=== PATIENT | female | born 2000 | race Caucasian/White ===

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

== ENCOUNTER 2021-02-09 21:48 | Emergency (ER) | payer SELFPAY ==
--- NOTE | 2021-02-09 22:29 | EDM.PDOC ---
ED HPI GENERAL MEDICAL PROBLEM - General Chief Complaint: ENT Problem Stated Complaint: VOMITING/FEVER/SPRE THROAT Time Seen by Provider: 02/09/21 22:02 Source of Information: Reports: Patient, RN Notes Reviewed - History of Present Illness INITIAL COMMENTS - FREE TEXT/NARRATIVE: 20 yr old female comes in with throat pain. This started about 4 to 5 days ago, more severe the last 2 days. Painful to swallow, chills, possible low grade fever. Has been vacinated for covid. Not coughing or short of breath. Throat Pain Score (Numeric/FACES): 10 - Related Data Allergies Allergy/AdvReac Type Severity Reaction Status Date / Time No Known Allergies Allergy Verified 02/09/21 22:03 Home Meds: Home Meds Hydrocodone/Acetaminophen [HYDROcodone-Acetaminophen 5-325 MG] 1 each PO Q6HR PRN #8 tab 02/09/21 [Rx] Penicillin V Potassium [Veetids] 500 mg PO Q6H #30 tab 02/09/21 [Rx] Past Medical History - Past Health History Medical/Surgical History: Denies Medical/Surgical History Neurological History: Reports: Other (See Below) Other Neuro History: being worked up by neurologist in [place] for [place]IC[place]; occasional headaches - Infectious Disease History Infectious Disease History: Reports: None Social & Family History - Tobacco Use Tobacco Use Status *Q: Never Tobacco User - Caffeine Use Caffeine Use: Reports: Energy Drinks ED ROS GENERAL - Review of Systems Review Of Systems: See Below Constitutional: Reports: Fever, Chills HEENT: Reports: Throat Pain. Denies: Ear Pain, Rhinitis Respiratory: Denies: Shortness of Breath, Cough Cardiovascular: Denies: Chest Pain GI/Abdominal: Denies: Abdominal Pain, Diarrhea, Nausea, Vomiting Musculoskeletal: Reports: No Symptoms Skin: Reports: No Symptoms Neurological: Reports: No Symptoms ED EXAM, GENERAL - Physical Exam Exam: See Below General Appearance: Alert, No Apparent Distress Nose: Normal Inspection Throat/Mouth: Inflammation (no visible exudate) Neck: No: Lymphadenopathy (L), Lymphadenopathy (R) Respiratory/Chest: No Respiratory Distress, Lungs Clear, Normal Breath Sounds. No: Rhonchi Cardiovascular: Tachycardia Extremities: Normal Inspection Neurological: Alert, Oriented, No Motor/Sensory Deficits Skin Exam: Warm, Dry, Normal Color, No Rash Course - Vital Signs Last Recorded V/S: Last Vital Signs Temp 98.8 F 12/10/21 22:00 Pulse 115 H 02/09/21 22:00 Resp 18 02/09/21 22:00 BP 138/95 H 02/09/21 22:00 Pulse Ox 97 02/09/21 22:00 - Orders/Labs/Meds Orders: Active Orders 24 hr Category Date Time Status Peripheral IV Care [RC] . DIRECTED Care 02/09/21 23:10 Active Sodium Chloride 0.9% [Normal Saline] 1,000 ml Med 02/09/21 23:15 Active IV ONETIME Sodium Chloride 0.9% [Saline Flush] Med 02/09/21 23:10 Active 10 ml FLUSH ASDIRECTED PRN Peripheral IV Insertion Adult [OM.PC] Stat Oth 02/09/21 23:09 Ordered Medication Orders Sodium Chloride (Normal Saline) 1,000 mls @ 999 mls/hr IV ONETIME RUI Last Admin: 02/09/21 23:17 Dose: 999 mls/hr Documented by: KELIN Sodium Chloride (Sodium Chloride 0.9% 10 Ml Syringe) 10 ml FLUSH ASDIRECTED PRN PRN Reason: Keep Vein Open Last Admin: 02/09/21 23:17 Dose: 10 ml Documented by: KELIN Labs: Laboratory Tests 02/09/21 02/09/21 Range/Units 22:00 22:17 SARS-CoV-2 RNA ([facility]) Negative (NEGATIVE) Group A Strep (PCR) Detected H (NOT DETECT) Meds: Medications Generic Name Dose Route Start Last Admin Trade Name Freq PRN Reason Stop Dose Admin Sodium Chloride 1,000 mls @ 999 mls/hr 02/09/21 23:15 02/09/21 23:17 Normal Saline IV 999 mls/hr ONETIME RUI Administration Sodium Chloride 10 ml 02/09/21 23:10 02/09/21 23:17 Sodium Chloride 0.9% 10 Ml Syringe FLUSH 10 ml ASDIRECTED PRN Administration Keep Vein Open Discontinued Medications Generic Name Dose Route Start Last Admin Trade Name Freq PRN Reason Stop Dose Admin Hydrocodone Bitart/Acetaminophen 1 tab 02/09/21 23:10 02/09/21 23:17 Acetaminophen/Hydrocodone 325-5 Mg Tab PO 02/09/21 23:11 1 tab ONETIME ONE Administration Penicillin V Potassium 500 mg 02/09/21 23:10 02/09/21 23:17 Penicillin V Potassium 500 Mg Tab PO 02/09/21 23:11 500 mg ONETIME ONE Administration - Re-Assessments/Exams Free Text/Narrative Re-Assessment/Exam: 02/09/21 23:16 Rapid strep is pos. she is requesting IV fluid, has not been drinking well the last few days, will give 1 hydrocodone for pain, that will also help, discharge instr. as documented. Departure - Departure Time of Disposition: 23:16 Disposition: Home, Self-Care 01 Condition: Fair Clinical Impression: Strep throat - Discharge Information Prescriptions: Hydrocodone/Acetaminophen [HYDROcodone-Acetaminophen 5-325 MG] 1 each PO Q6HR PRN #8 tab PRN Reason: Pain Penicillin V Potassium [Veetids] 500 mg PO Q6H #30 tab Instructions: Sore Throat, [id number] Referrals: Marley Quiroga PA-C [Primary Care Provider] - Forms: ED Department Discharge Additional Instructions: PenVK 500 mg 4 times daily for 1 week or until gone. Tylenol for mild to moderate discomfort or hydrocodone if needed for severe pain. Prescriptions have been sent to [facility] on [address]. They can be picked up in the morning. Follow up clinic as needed. Return to ED as needed. Sepsis Event Note (ED) - Focused Exam Vital Signs: Vital Signs Temp Pulse Resp BP Pulse Ox 02/09/21 22:00 98.8 F 115 H 18 138/95 H 97 - My Orders Last 24 Hours: My Active Orders 02/09/21 23:09 Peripheral IV Insertion Adult [OM.PC] Stat 02/09/21 23:10 Peripheral IV Care [RC] . DIRECTED Sodium Chloride 0.9% [Saline Flush] 10 ml FLUSH ASDIRECTED PRN 02/09/21 23:15 Sodium Chloride 0.9% [Normal Saline] 1,000 ml IV ONETIME - Assessment/Plan Last 24 Hours: My Active Orders 02/09/21 23:09 Peripheral IV Insertion Adult [OM.PC] Stat 02/09/21 23:10 Peripheral IV Care [RC] . DIRECTED Sodium Chloride 0.9% [Saline Flush] 10 ml FLUSH ASDIRECTED PRN 02/09/21 23:15 Sodium Chloride 0.9% [Normal Saline] 1,000 ml IV ONETIME
[2021-02-09] MEDS ORDERED: Penicillin V Potassium 500 MG Tab PO ONE (23:10)
[2021-02-09] MEDS ORDERED: Acetaminophen/HYDROcodone 325-5 MG Tab PO ONE (23:10)
[2021-02-09] MEDS ORDERED: Sodium Chloride 0.9% 10 ML Syringe FLUSH PRN (23:10)
[2021-02-09] MEDS ORDERED: Sodium Chloride 0.9% 1,000 ML IV SCH (23:15)
== END 2021-02-10 00:54 | disposition home or self-care (01) ==
LOC: JD.ED 21:48
DX: J02.0 Streptococcal pharyngitis (principal); Z20.822 Contact with and (suspected) exposure to COVID-19
CPT/HCPCS: 87635; 87651; 99283; A9270; J7030; U0002

== ENCOUNTER 2022-08-02 00:38 | Emergency (ER) | payer BC ==
[2022-08-02 01:15] LABS: BASOPHILS ABSOLUTE AUTO 0.13 K/mm3 (0.01-0.08); BASOPHILS PERCENT AUTO 1.1 % (0.1-1.2); EOSINOPHILS PERCENT AUTO 0.9 (0.7-5.8); HEMATOCRIT 43.2 % (34.1-44.9); HEMOGLOBIN 15.1 gm/dl (11.2-15.7); IMMATURE GRAN ABSOLUTE AUTO 0.06 K/mm3 (0.00-0.10); IMMATURE GRAN PERCENT AUTO 0.5 % (<=1.0); LYMPHOCYTES ABSOLUTE AUTO 5.06 K/mm3 (1.18-3.74); LYMPHOCYTES PERCENT AUTO 44.5 % (19.3-51.7); MEAN CORPUSCULAR HEMOGLOBIN 29.3 pg (25.6-32.2); MEAN CORPUSCULAR VOLUME 83.7 fl (79.4-94.8); MEAN PLATELET VOLUME 10.1 fl (9.4-12.3); MONOCYTES PERCENT AUTO 13.2 % (4.7-12.5); NEUTROPHILS ABSOLUTE AUTO 4.53 K/mm3 (1.56-6.13); NEUTROPHILS PERCENT AUTO 39.8 % (34.0-71.1); PLATELET COUNT,PLT 228 K/mm3 (182-369); RED BLOOD CELL COUNT 5.16 M/mm3 (3.98-5.22); WHITE BLOOD CELL COUNT,WBC 11.38 K/mm3 (3.98-10.04)
[2022-08-02 01:36] LABS: ALBUMIN 4.2 g/dl (3.4-5.0); ANION GAP 12.9 (5-15); BILIRUBIN TOTAL 0.8 mg/dL (0.2-1.0); BUN/CREATININE RATIO 14.5 (14-18); CALCIUM 9.7 mg/dL (8.5-10.1); CREATININE 1.1 mg/dL (0.55-1.02); EST CRCL DRUG DOSING (CG) 78.67 mL/min; POTASSIUM,K 3.9 mEq/L (3.5-5.1); PROTEIN TOTAL,TP 8.4 g/dl (6.4-8.2)
[2022-08-02 02:11] LABS: SLIDE REVIEW ABNORMAL SMEAR
== END 2022-08-02 02:19 | disposition home or self-care (01) ==
LOC: JD.ED 00:38
DX: R42 Dizziness and giddiness (principal)
CPT/HCPCS: 36415; 80053; 85025; 93005; 93010; 99284